=== PATIENT | female | born 1995 | race Caucasian/White ===

== ENCOUNTER 2017-02-20 05:38 | Inpatient (IN) ==
[2017-02-20] MEDS ORDERED: MEPERIDINE 50 MG/1 ML VIAL IV PRN (05:54)
[2017-02-20] MEDS ORDERED: ONDANSETRON 4 MG/2 ML VIAL IV PRN (05:54)
[2017-02-20] MEDS ORDERED: LACTATED RINGERS 1,000 ML IV SCH (06:00)
[2017-02-20] MEDS ORDERED: OXYTOCIN/LR 20 UNIT/1,000 ML BAG IV SCH (06:00)
[2017-02-20 06:32] LABS: Basophils % 0.4 % (0.0-0.8); Eosinophils # 0.2 10*3/uL (0.0-0.87); Eosinophils % 1.6 % (0.00-10.9); Hematocrit 36.2 VOL% (35.7-47.0); Hemoglobin 12.4 GM/DL (12.0-16.0); Immature Granulocytes % 1.5 %; Immature Granulocytes Absolute 0.14 #; Lymphocytes # 3.2 10*3/uL (1.4-4.0); Lymphocytes % 34.6 % (21.3-54.2); Mean Corpuscular HGB Conc 34.3 GM/DL (32-36); Mean Corpuscular Hemoglobin 31 PG (27-34); Mean Corpuscular Volume 89.4 FL (87-102); Mean Platelet Volume 9.8 FL (9.6-12.0); Monocytes # 0.6 10*3/uL (0.11-0.8); Monocytes % 6.7 % (1.7-12.7); Neutrophils % 55.2 % (38.7-73.9); Platelet Count 231 T/CUMM (130-400); Red Blood Count 4.05 MC/CUMM (3.8-5.5); Red Cell Distribution Width 13.1 % (9.3-17.3); White Blood Count 9.1 T/CUMM (4-12)
--- NOTE | 2017-02-20 09:24 | OB/GYN History & Physical ---
History of Present Illness Chief complaint: In for elective induction of labor. History of present illness: Ms. Figueroa is a 21 year old female 5 para 2 AB 2 living 2. Her JUAN is 02/26/2017 for an estimated gestational age of 39 weeks and 1 day. The patient presents for elective induction of labor due to term . The risk and benefits of been thoroughly discussed with this patient and significant other, plan of care has been discussed with Dr. Ortez and all parties are in agreement with plan. The patient received her care through the [facility]. She received routine care throughout. Her course was uneventful. The patient has had 2 previous vaginal deliveries her largest weighed 6 pounds and 15 ounces, she reported no complications with either . labs: She is O+, rubella is immune, serologies nonreactive, hepatitis B negative, HIV negative, and GBS culture is negative. Review of systems is negative with exception of above. Home Medications Medication Instructions Recorded Confirmed Type Multivitamin () [ 1 tablet PO DAILY MDD one tab 01/27/17 History Vitamin] Allergies Allergy/AdvReac Type Severity Reaction Status Date / Time No Known Allergies Allergy Verified 12/27/14 11:51 12 point system: reviewed and no additional remarkable complaints except as stated Medical,Surgical,& Family Hx - Medical History Medical History: noncontributory HEENT: No history of: Ear Problem, Eye Problem, Dental Problems, Glaucoma, Oral Cancer, HEENT Problems Reproductive: No history of: Ectopic , Complication - Surgical History HEENT Surgeries: Surgical HX of: Tonsilectomy & Adenoidectomy Patient denies: Eye Surgery Abdominal Surgeries: Patient denies: Abdominal Surgery Reproductive Surgeries: Patient denies;: Section - Family History Family History: Reports;: Family Diabetes (MGM PGM), Family Heart Disease (MOM, MGF), Family Hypertension (MOTHER DAD AND GF), Additional Family History (MOM - depression, anxiety) Denies;: Family Anesthesia Reaction, Family Cancer, Family Hematology, Family Psychiatric Problems, Family Stroke - Social History Smoking Status: Never smoker Frequency of Alcohol Use: None Type of Drug Use: None Marital Status: Lives With:: Spouse Functional capacity: independent ambulation 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 - Constitutional Vitals: Vital Signs Temp Pulse Resp BP Pulse Ox 02/20/17 05:43 97.1 F L 89 20 117/71 98 General appearance: no acute distress - Antepartum / Post Antepartum Exam Cervix - Dilatation: 4 cm Effacement: 70% Station: -2 Rupture: Intact Presentation: Vertex Heart Rate: 140 Breast: bilateral: normal Abdomen obstetrics: Present: bowel sounds normal Vagina: Present: normal moisture Cervix: Present: normal Uterus exam: Present: enlarged Anus/Rectum: Present: normal perianal skin - Head Head exam: Present: normal inspection - Neck Neck exam: Present: normal inspection - Respiratory Respiratory exam: Present: clear to auscultation bilaterally - Cardiovascular Cardiovascular exam: Present: regular rate and rhythm - GI/Abdominal GI/Abdominal exam: Present: normal bowel sounds, soft - Extremities Exam Extremities exam: Present: normal inspection - Back Exam Back exam: Present: normal inspection - Neurological Exam Neurological exam: Present: alert - Psychiatric Psychiatric exam: Present: normal affect, normal mood - Skin Skin exam: Present: normal color, warm Assessment and Plan (1) Term Status: Acute Assessment and plan: Admit IV fluids IV Pitocin per protocol Artificial rupture membranes Internal monitors if indicated Epidural anesthesia if desired Anticipate Current Visit: Yes Results - Labs CBC & BMP: 02/20/17 06:08
[2017-02-20] MEDS ORDERED: MEASLES/MUMPS/RUBELLA VACCINE 0.5 ML VIAL SUBCUT ONE (14:05)
[2017-02-20] MEDS ORDERED: ACETAMINOPHEN 325 MG TABLET PO PRN (14:05)
[2017-02-20] MEDS ORDERED: oxyCODONE/ACETAMINOPHEN 5-325 MG TABLET PO PRN ×2 (14:05)
[2017-02-20] MEDS ORDERED: LANOLIN 50% CREAM 0.3 OZ TUBE TOP PRN (14:05)
[2017-02-20] MEDS ORDERED: OXYTOCIN/LR 20 UNIT/1,000 ML BAG IV ONE (14:05)
[2017-02-20] MEDS ORDERED: DIPH/TET/ACEL PERT BOOSTER VACCINE 0.5 ML VIAL IM ONE (14:05)
[2017-02-20] MEDS ORDERED: BISACODYL 10 MG SUPP RECTAL PRN (14:05)
[2017-02-20] MEDS ORDERED: WITCH HAZEL PADS 100/JAR TOP PRN (14:05)
[2017-02-20] MEDS ORDERED: RHO(D) IMMUNE GLOBULIN 300 MCG SYRINGE IM ONE (14:05)
[2017-02-20] MEDS ORDERED: HYDROCORTISONE 2.5% RECTAL CREAM 30 GM TUBE TOP PRN (14:05)
[2017-02-20] MEDS ORDERED: BENZOCAINE 20%/MENTHOL 0.5% SPRAY 56 GM CAN TOP PRN (14:05)
--- NOTE | 2017-02-20 14:05 | Event Note ---
HPI: Ms. Figueroa is a 21-year-old that presented for elective induction of labor due to term . The risk and benefits were thoroughly discussed with the patient and significant other, plan of care was discussed with Dr. Ortez and all parties were in agreement plan. Stage I: The patient was admitted and received IV fluids and IV Pitocin per protocol. Artificial rupture membranes was performed with clear fluid noted. Patient received IV pain meds for pain control. She progressed in labor with a CAT 1 tracing. She had an uneventful course of labor. Stage II: Patient was complete and complained of pressure and strong desire to push. She pushed for approximately 5 minutes after which time the infant's head was delivered. The mouth nose suctioned on perineum. The remainder of the infant was delivered at 1345 a viable male was noted. Apgars were 9 at 1 minute and 9 at 5 minutes. weight was 8 pounds and 1 ounce. A cord pH was obtained and sent to the lab. The was placed on the mom's abdomen for skin to skin bonding. Stage III: A spontaneous delivery of a Gordon placenta with a three-vessel cord noted. The placenta was further examined. Grossly intact. The vagina cervix inspected with no tears or lacerations noted. Estimated blood loss was approximately 10 cc. At the time of dictation mother and baby are both in stable condition.
[2017-02-20 14:07] LABS: Cord Arterial Blood HCO3 24.9 MMOL/L
[2017-02-20 14:11] LABS: Cord Venous Blood PCO2 41.7 MMHG; Cord Venous Blood PO2 21.3 MMHG
[2017-02-20] MEDS ORDERED: ACETAMINOPHEN/CODEINE 300-30 MG TABLET PO PRN (16:02)
[2017-02-20] MEDS: IBUPROFEN 800 MG TABLET PO PRN (18:27)
[2017-02-20] MEDS: DOCUSATE SODIUM 100 MG CAPSULE PO SCH (20:41)
[2017-02-21] MEDS: IBUPROFEN 800 MG TABLET PO PRN (05:23)
[2017-02-21 06:16] LABS: Basophils % 0.3 % (0.0-0.8); Eosinophils # 0.2 10*3/uL (0.0-0.87); Hematocrit 34.2 VOL% (35.7-47.0); Hemoglobin 11.9 GM/DL (12.0-16.0); Immature Granulocytes % 0.8 %; Immature Granulocytes Absolute 0.12 #; Lymphocytes # 3.6 10*3/uL (1.4-4.0); Lymphocytes % 25.2 % (21.3-54.2); Mean Corpuscular HGB Conc 34.8 GM/DL (32-36); Mean Corpuscular Hemoglobin 31 PG (27-34); Mean Corpuscular Volume 89.5 FL (87-102); Mean Platelet Volume 10.2 FL (9.6-12.0); Monocytes # 1.1 10*3/uL (0.11-0.8); Monocytes % 7.3 % (1.7-12.7); Neutrophils # 9.4 10*3/uL (1.4-7.4); Neutrophils % 65.4 % (38.7-73.9); Platelet Count 224 T/CUMM (130-400); Red Blood Count 3.82 MC/CUMM (3.8-5.5); Red Cell Distribution Width 13.2 % (9.3-17.3); White Blood Count 14.4 T/CUMM (4-12)
[2017-02-21] MEDS: DOCUSATE SODIUM 100 MG CAPSULE PO SCH ×2 (08:51→21:54)
--- NOTE | 2017-02-21 09:50 | OB/GYN Progress Note ---
Assessment and Plan (1) Term Status: Acute Assessment and plan: Admit IV fluids IV Pitocin per protocol Artificial rupture membranes Internal monitors if indicated Epidural anesthesia if desired Anticipate Current Visit: Yes (2) Vaginal delivery Status: Acute Assessment and plan: Initiate routine orders. Current Visit: Yes SERVICE TECHNICIAN - PN: Subj Interval history: Stable in no acute distress. Bonding well with . Exam SERVICE TECHNICIAN - Constitutional Vitals: Vital Signs Temp Pulse Resp BP Pulse Ox 02/21/17 07:24 97.4 F L 72 18 119/68 98 02/21/17 04:00 97.8 F 74 20 118/75 98 02/21/17 00:00 97.3 F L 81 18 105/63 97 02/20/17 19:10 97.9 F 82 20 110/59 98 02/20/17 18:45 61 20 123/78 02/20/17 17:55 80 20 123/73 02/20/17 16:55 76 20 125/71 02/20/17 16:25 83 20 122/70 02/20/17 15:55 98 F 78 20 128/73 02/20/17 12:00 97.6 F 68 20 109/60 General appearance: no acute distress - Head Head exam: Present: normal inspection - Respiratory Respiratory exam: Present: clear to auscultation bilaterally - Cardiovascular Cardiovascular exam: Present: regular rate and rhythm - GI/Abdominal GI/Abdominal exam: Present: normal bowel sounds, soft - Extremities Exam Extremities exam: Present: normal inspection - Neurological Exam Neurological exam: Present: alert, oriented X3 - Psychiatric Psychiatric exam: Present: normal affect, normal mood - Skin Skin exam: Present: normal color, warm Results - Labs CBC & BMP: 02/21/17 05:41
[2017-02-22] MEDS: DOCUSATE SODIUM 100 MG CAPSULE PO SCH (08:45)
--- NOTE | 2017-02-22 11:35 | Discharge Summary ---
Hospital Course - Hospital Course Hospital Course: Ms. Figueroa presented for elective induction of labor due to term . She subsequently delivered a viable infant with no complications. She has followed a routine course and she has done well. Her bleeding is minimal with no odor. Her perineum is intact. She is bonding well with her . Her vital signs and lab values are stable. Her bowel sounds are positive she has had a normal bowel movement. She denies any significant complaints of pain. She will be discharged home prescriptions for pain and follow-up appointment in our office. Diagnosis - Discharge Diagnosis (1) Term Status: Acute (2) Vaginal delivery Status: Acute Specialty Discharge - Follow Up or Referrals Follow up with: Luis Carlos Ortez MD [Physician] - (Follow-up in 6 weeks) Discharge Plan - Discharge Data Disposition: Disch To Home/Self Care Condition at Discharge: Stable Discharge Diet: advance to your usual diet, regular diet Activity: resume usual activities as tolerated Hygiene: no restrictions Weight Bearing at Discharge: weight bear as tolerated Driving: no restrictions Contact your physician if you experience:: fever over 101, pain uncontrolled by pain medications - Discharge Medications New Ibuprofen Tab [Motrin Tab] 800 mg PO Q6H PRN #30 tablet PRN Reason: Pain Moderate (4-7) Acetamin/Codeine 300-30 Tab [Tylenol/Codeine #3] 2 tablet PO Q4H PRN #30 tablet PRN Reason: Pain Mild (1-3) No Action Multivitamin () [ Vitamin] 1 tablet PO DAILY MDD one tab - Follow Up or Referral - Forms/Instructions Instructions: Perineal Care (DC), Bleeding (DC) Exam - Constitutional Vitals: Period Temp Pulse Resp BP Sys/Lo Pulse Ox Last 24 Hr 97.6 F-98.2 F 64-78 18-20 115-125/70-80 96-99 General appearance: no acute distress - Head Head exam: Present: normal inspection - Respiratory Respiratory exam: Present: clear to auscultation bilaterally - Cardiovascular Cardiovascular exam: Present: regular rate and rhythm - GI/Abdominal GI/Abdominal exam: Present: normal bowel sounds, soft - Extremities Exam Extremities exam: Present: normal inspection - Back Exam Back exam: Present: normal inspection - Neurological Exam Neurological exam: Present: alert, oriented X3 - Psychiatric Psychiatric exam: Present: normal affect, normal mood - Skin Skin exam: Present: normal color, warm Discharge Results Procedures and tests throughout hospitalization: Pending Orders 02/20/17 05:54 Urinalysis Routine DS: Provider Date of admission: 02/20/17 05:54 Primary care physician: Destiny Peña Attending physician on admission: Luis Carlos Ortez MD Consults: 02/20/17 05:54 Consult to Anesthesiology [CONS] Routine Consulting Provider: Reason for Anesthesiology: Epidural Consult Comment: Epidural for pain managment 02/20/17 14:05 Consult to Residential Sales Rep [CONS] Routine Consult Residential Sales Rep: Breast Feeding Discharging clinician: Kamila Nichols CNM Expected date of discharge: 02/22/17
[2017-02-22 13:18] VITALS: BP 118/75
== END 2017-02-22 13:05 | disposition home or self-care (01) | DRG 560 ==
LOC: N.LDOUT 05:38 → N.LD 05:43 → N.OB 15:59
PROVIDERS: ADMIT Obstetrics & Gynecology; ATTEND Obstetrics & Gynecology